=== PATIENT | female | born 1990 | race Caucasian/White ===

== ENCOUNTER 2017-10-02 15:21 | Emergency (ER) | payer MEDICAID, OTHER ==
[2017-10-02] MEDS ORDERED: IBUPROFEN 200 MG TAB PO ONE (15:40)
--- NOTE | 2017-10-02 16:03 | EDPHY ---
H & P Time Seen by Provider: 10/02/17 15:41 HPI/ROS: HPI Injury to fingers. 27-year-old female, right-hand dominant, presents to the emergency department complaining of pain to the distal aspects of the 2nd and 3rd digits, right hand. Prior to arrival she was trying to prevent a door from slamming shot and she got the tips of these fingers caught in the door as it slammed closed into the door frame. She denies any other injury or complaint. She reports that she has had a tetanus shot within the last 5 years. ROS: Constitutional: No fever, no chills. No weakness. Musculoskeletal: No back pain. No neck pain. As above. Skin: No rashes. Small laceration to right index finger. Neurological: No focal weakness or altered sensation. Past medical history: Exercise-induced asthma. Social history: Nonsmoker. Here with her father. No alcohol. Physical Exam: General Appearance: Alert, no distress. This patient is responding to questions appropriately and in full sentences. This patient appears well- hydrated and well-nourished. Eyes: Pupils equal and round no pallor or injection. No lid edema, erythema or injection. Right hand examination: Significant for tenderness and swelling to the dorsal distal aspect of the index finger. She has a subungual hematoma, this represents about 50% of the nail bed, she has a swelling of the proximal nail bed extending proximal to the cuticle and nail fold. Just proximal to the nail fold there is a non gaping linear laceration measuring approximately 1 cm. This is not suturable. I do not believe this represents an open fracture. There is also some faint ecchymosis noted on the finger pad. The skin is closed to this area. The 3rd digit, has some very mild swelling and a subtle subungual hematoma representing about 20% of the nail bed. It is tender on palpation. No associated lacerations. Both digits are neurovascularly intact. Neurological: Motor sensory function is grossly intact. Cranial nerves are normal. Gait is normal. Skin: Warm and dry, no rashes. Extremities are symmetrical. All joints range without pain or impingement. Psychiatric: No agitation. No depression. Database: EKG: Imaging: Right hand 2nd and 3rd digit x-ray series: Negative for fracture, subluxation, dislocation. Interpreted by me. Procedures: Trephination of right index finger subungual hematoma: Electric cautery stick used to place 0.5 mm hole in medial aspect of nail just above hematoma. Venous drainage expressed. Patient tolerated procedure well. There were no complications. Emergency department course: Vital signs reviewed. The patient was given 600 mg of ibuprofen for pain. She was sent for imaging as noted above. When I had the results of her x-rays back I re-evaluated her. Results of x-rays discussed with her and her father. I performed a small trephination to the medial aspect of the proximal nail of the index finger just above the area of hematoma. There was some oozing of venous blood. Good drainage was achieved. The patient tolerated this well and there were no complications. The wound area was cleansed thoroughly. A bulky tube dressing was applied to the index finger. Follow-up was discussed with the patient and her father. Return to emergency department precautions reviewed. All of their questions were answered. The patient was discharged in good condition. Differential Diagnosis: The differential diagnosis on this patient includes but is not limited to subungual hematoma of the right index finger. Fracture, subluxation, dislocation of the finger unlikely. This represents a partial list of diagnoses considered. These considerations are based on history, physical exam , past history, reassessment and diagnostic testing. Smoking Status: Current every day smoker Constitutional: Initial Vital Signs Temperature (C) 37.2 C 10/02/17 15:31 Heart Rate 88 10/02/17 15:31 Respiratory Rate 16 10/02/17 15:31 Blood Pressure 113/74 10/02/17 15:31 O2 Sat (%) 96 10/02/17 15:31 O2 Delivery Mode Room Air Allergies/Adverse Reactions: hydrocodone bitartrate [From Vicodin] Allergy (Intermediate, Verified 10/02/17 15:30) penicillin V potassium [From Pen-Vee K] Allergy (Intermediate, Verified 15:30) Sulfa (Sulfonamide Antibiotics) Allergy (Intermediate, Verified 10/02/17 15:30) Home Medications: Medication Instructions Recorded oxyCODONE/APAP 5/325 [Percocet 1 - 2 tab PO Q4-6PRN PRN #7 tab 10/02/17 5/325 (*)] Medical Decision Making - Diagnostics Imaging Results: Imaging Impressions Finger X-Ray 10/02/17 15:46 Impression: No evidence for acute osseous abnormality. - Data Points Medications Given: Discontinued Medications Ibuprofen (Motrin) 600 mg PO EDNOW ONE Stop: 10/02/17 15:41 Last Admin: 10/02/17 15:47 Dose: 600 mg Departure - Departure Disposition: Home, Routine, Self-Care Clinical Impression: Finger injury, Subungual hematoma of digit of hand Condition: Good Instructions: Oxycodone/Acetaminophen (By mouth), Subungual Hematoma (ED) Additional Instructions: Read and follow provided instructions. Keep wound area dry and clean. Follow-up with your primary care physician in 2-3 days for re-evaluation. Take medication as prescribed. Ibuprofen dosin mg every 6 hours with meals for the next 3 days only. Take only as needed for pain. [place]/Percocet dosin-2 every 4-6 hours for [address] Do not drive on this medication. Return to the emergency department for worsening pain, bleeding, swelling or other serious concerns. Referrals: Adilene Cota MD [Primary Care Provider] - As per Instructions Prescriptions: oxyCODONE/APAP 5/325 [Percocet 5/325 (*)] 1 - 2 tab PO Q4-6PRN PRN #7 tab PRN Reason: For Moderate To Severe Pain
[2017-10-02 17:15] VITALS: BP 96/51
== END 2017-10-02 17:12 | disposition home or self-care (01) ==
LOC: CED 15:21
PROC: 0H9QXZZ Drainage of Finger Nail, External Approach (ICD-10-PCS; principal; 2017-10-02)
DX: S60.021A Contusion of right index finger without damage to nail, initial encounter (principal); F17.200 Nicotine dependence, unspecified, uncomplicated; J45.909 Unspecified asthma, uncomplicated; W23.0XXA Caught, crushed, jammed, or pinched between moving objects, initial encounter
CPT/HCPCS: 73140-PO

== ENCOUNTER 2017-12-06 10:13 | Emergency (ER) | payer MEDICAID ==
[2017-12-06 10:50] VITALS: BP 105/68
--- NOTE | 2017-12-06 11:47 | EDPHY ---
H & P Time Seen by Provider: 12/06/17 11:09 HPI/ROS: HPI Stressed out, concerned about lump on arm pit. 27-year-old female by private vehicle. This patient tells me that she has been stressed out because of life and work. She is not suicidal. She reports that she has had a lump under her left armpit for a long time and thinks that it is getting bigger. She is worried that it may be cancerous. She also tells me that she feels a lump which is somewhat painful on the left side of her throat/ anterior neck. She reports that she has noticed this for at least 3-4 weeks. She also reports that she has lost 10 lb over the last 5 weeks. She has a history of anorexia. Denies voice changes. No difficulty swallowing or breathing. No stridor. She has not had a fever. No other complaints. ROS: Constitutional: No fever, no chills. As above. Eyes: No discharge. No changes in vision. ENT: No sore throat. No nasal congestion or rhinorrhea. As above. Respiratory: No cough. No shortness of breath. Cardiac: No chest pain, no palpitations. Gastrointestinal: No abdominal pain, no vomiting, no diarrhea. Genitourinary: No hematuria. No dysuria or increased frequency with urination. Musculoskeletal: No back pain. No neck pain. No myalgias or arthralgias. Skin: No rashes. As above. Neurological: No headache. No focal weakness or altered sensation. Past medical history: Tonsillectomy, anorexia, anxiety. Social history: Nonsmoker. Here by herself. No alcohol. Physical Exam: General Appearance: Alert, anxious. She appears healthy. This patient is responding to questions appropriately and in full sentences. This patient appears well-hydrated and well-nourished. Eyes: Pupils equal and round no pallor or injection. No lid edema, erythema or injection. ENT, Mouth: Mucous membranes are moist. The pharyngeal tissues are unremarkable. No edema or swelling. No asymmetry suggestive of abscess. No erythema or exudates. No cervical, submental, submandibular lymphadenopathy. No abnormal soft tissue masses or other masses appreciated on palpation of her anterior and lateral neck. No stridor. No voice changes. Her upper airway sounds are clear on auscultation. Neurological: Motor sensory function is grossly intact. Cranial nerves are normal. Gait is normal. Skin: Warm and dry, no rashes. Scars from cutting/self-mutilation which she said she did at the age of 17. Examination of the left axilla is significant for a small 0.5 cm to 1 cm in diameter cyst ganglionic verses sebaceous. No significant tenderness on palpation. The cyst is freely movable under the soft tissue. No associated erythema, warmth or edema. Musculoskeletal: Neck is supple and nontender. No pain on flexion of the neck. Extremities are symmetrical. All joints range without pain or impingement. Psychiatric: No agitation. No depression. Database: EKG: Imaging: Procedures: Emergency department course: Vital signs reviewed and are normal. I explained to the patient that the cyst under her left axilla which has been there for some time is not malignant or infected. I instructed her to follow up with her primary care physician for a general surgery referral and outpatient excision of the cyst. She stated she would do this. I do not appreciate any abnormality on examination of her neck or pharynx. At this time she feels comfortable going home. I do not feel she requires any further emergency department management. I stressed the importance of follow-up through her primary care physician for re-evaluation of these complaints. Return to emergency department precautions were reviewed. All of her questions were answered. She was discharged from the emergency department in good condition. Differential Diagnosis: The differential diagnosis on this patient includes but is not limited to anxiety reaction, stress reaction, left axilla sebaceous cyst, left axilla ganglionic cyst. Airway foreign body, neck mass, carotid artery aneurysm, malignancy, significant dehydration/malnourishment unlikely. This represents a partial list of diagnoses considered. These considerations are based on history , physical exam, past history, reassessment and diagnostic testing. Smoking Status: Heavy smoker Constitutional: Initial Vital Signs Temperature (C) 37.2 C 12/06/17 10:44 Heart Rate 95 12/06/17 10:44 Respiratory Rate 16 12/06/17 10:44 Blood Pressure 105/68 12/06/17 10:44 O2 Sat (%) 99 12/06/17 10:44 O2 Delivery Mode Room Air Allergies/Adverse Reactions: hydrocodone bitartrate [From Vicodin] Allergy (Intermediate, Verified 12/06/17 10:50) penicillin V potassium [From Pen-Vee K] Allergy (Intermediate, Verified 10:50) Sulfa (Sulfonamide Antibiotics) Allergy (Intermediate, Verified 12/06/17 10:50) Home Medications: Medication Instructions Recorded NK [No Known Home Meds] 12/06/17 Departure - Departure Disposition: Home, Routine, Self-Care Clinical Impression: Sebaceous cyst of left axilla, Anxiety Condition: Good Instructions: Ganglion Cysts (ED) Additional Instructions: Read and follow provided instructions. Follow-up with your primary care physician in 1-2 days for re-evaluation as discussed. Your primary care physician can refer you to a general surgeon or plastic surgeon to have the cyst under you're left armpit removed. Keep well hydrated. Return to the emergency department for worsening symptoms or other serious concerns. Referrals: Adilene Cota MD [Primary Care Provider] - As per Instructions
== END 2017-12-06 11:45 | disposition home or self-care (01) ==
LOC: CED 10:13
DX: L72.3 Sebaceous cyst (principal); F41.9 Anxiety disorder, unspecified; F17.200 Nicotine dependence, unspecified, uncomplicated